=== PATIENT | female | born 1955 | race Two or more races ===

== ENCOUNTER 2016-08-16 18:52 | Emergency (ER) | payer MEDICAID, OTHER ==
[~2016-08-16] VITALS: Ht 157.5 cm; Wt 45.0 kg
[2016-08-16] MEDS ORDERED: morphine 2 MG INJ IV STA (21:03)
[2016-08-16] MEDS ORDERED: ASPIRIN 81 MG TAB PO STA (21:03)
[2016-08-16] MEDS ORDERED: ASPI-664 PO (21:29)
[2016-08-16] MEDS ORDERED: LORA0.5T PO (21:30)
[2016-08-16] MEDS ORDERED: IBUP-1542 PO (21:30)
[2016-08-16] MEDS ORDERED: LISI30TA47 PO (21:31)
[2016-08-16] MEDS ORDERED: OMEP20CA16 PO (21:31)
[2016-08-16 21:35] LABS: ADD SCAN DIFF NO
[2016-08-16 21:37] LABS: BASOPHILS % 0.6 % (0.0-2.0); EOSINOPHILS # 0.1 10^3/ul (0.0-0.5); EOSINOPHILS % 2.7 % (0.0-7.0); HEMATOCRIT 31.9 % (37.0-47.0); LYMPHOCYTES # 1.5 10^3/ul (0.8-2.9); LYMPHOCYTES % 29.6 % (15.0-51.0); MEAN CORPUSCULAR HEMOGLOBIN 26.5 pg (29.0-33.0); MEAN CORPUSCULAR HGB CONC 31.3 g/dl (32.0-37.0); MEAN CORPUSCULAR VOLUME 84.4 fl (82.0-101.0); MEAN PLATELET VOLUME 11.6 fl (7.4-10.4); MONOCYTE # 0.5 10^3/ul (0.3-0.9); MONOCYTES % 10.3 % (0.0-11.0); NEUTROPHIL # 2.9 10^3/ul (1.6-7.5); NEUTROPHILS % 56.6 % (39.0-77.0); PLATELET COUNT 198 10^3/UL (140-415); RED BLOOD COUNT 3.78 10^6/ul (4.20-5.40); RED CELL DISTRIBUTION WIDTH 15.4 % (11.5-14.5); WHITE BLOOD COUNT 5.1 10^3/ul (4.8-10.8)
[2016-08-16 21:47] LABS: CHLORIDE 104 mmol/L (97-110); SODIUM 141 mmol/L (135-144)
[2016-08-16 21:48] LABS: POTASSIUM 3.5 mmol/L (3.5-5.1)
[2016-08-16 21:49] LABS: INR 0.94; PROTIME 12.6 Sec (12.2-14.2)
[2016-08-16 21:50] LABS: ANION GAP 16 (8-16); CARBON DIOXIDE 25 mmol/L (21-31); CREATININE 0.63 mg/dl (0.44-1.00); PARTIAL THROMBOPLASTIN TIME 31.4 Sec (25.0-35.0)
[2016-08-16 21:51] LABS: BLOOD UREA NITROGEN 18 mg/dl (7-20); CALCIUM 8.8 mg/dl (8.4-10.2); GLUCOSE 111 mg/dl (70-220)
[2016-08-16 22:05] LABS: TROPONIN-I < 0.012 ng/ml (0.00-0.12)
--- NOTE | 2016-08-16 22:25 | RADRPT ---
PROCEDURE: XR Chest. CLINICAL INDICATION: Chest pain. TECHNIQUE: Single frontal view of the chest was obtained COMPARISON: None FINDINGS: The heart and mediastinum are within normal limits. The lungs are clear. Likely changes of centrolobular emphysema. There is no pleural effusion or pneumothorax. IMPRESSION: No acute disease. RPTAT: [facility]U Physician Nuris Date Time Electronically viewed and signed by David Mcclellan Physician on 08/16/2016 22:24 RS/
--- NOTE | 2016-08-16 23:16 | ERA ---
ER Documentation Chief Complaint Date/Time DATE: 08/16/16 TIME: 23:11 Chief Complaint Pt with SOB, CP and RAYMUNDO x 3 days, Generalized weakness. HPI 61-year-old female presenting with multiple complaints. She has a history of stroke, anxiety, and hypertension. She has been complaining of chest pain, shortness of breath, and headache for about 3 days. She is unable to describe her pain. She states it comes and goes, nothing makes it worse or better. She has no associated fever, chills, cough, abdominal pain, dysuria. Of note her is currently in the ICU after cardiac arrest. ROS All systems reviewed and are negative except as per history of present illness. Medications Home Meds Reported Medications Omeprazole* (Omeprazole*) 20 Mg Capsule.dr, 20 MG PO BID, #60 CAP 08/16/16 Lisinopril* (Lisinopril*) 30 Mg Tablet, 30 MG PO DAILY, #30 TAB 08/16/16 Ibuprofen* (Ibuprofen*) 600 Mg Tablet, 600 MG PO Q6H Y for PAIN, TAB 08/16/16 Lorazepam* (Lorazepam*) 0.5 Mg Tablet, 0.5 MG PO HS Y for ANXIETY, TAB 08/16/16 Aspirin* (Aspirin* EC) 81 Mg Tablet.dr, 81 MG PO DAILY, TAB 08/16/16 Allergies Allergies: Coded Allergies: hydromorphone (Unverified Allergy, Unknown, 08/16/16) PMhx/Soc History of Surgery: Yes (CWESARIAN DELIVERY X 3) Anesthesia Reaction: No Hx Neurological Disorder: Yes (CVA) Hx Respiratory Disorders: No Hx Cardiac Disorders: Yes (HTN) Hx Psychiatric Problems: No Hx Miscellaneous Medical Probl: No Hx Alcohol Use: No Hx Substance Use: No Hx Tobacco Use: No FmHx Family History: No diabetes Physical Exam Vitals Vital Signs Date Time Temp Pulse Resp B/P Pulse Ox O2 Delivery O2 Flow Rate FiO2 08/16/16 19:24 98.9 74 20 140/64 99 Physical Exam Const: Nontoxic, well-appearing, no apparent distress Head: Atraumatic Eyes: Normal Conjunctiva ENT: Normal External Ears, Nose and Mouth. Neck: Full range of motion. No meningismus. Resp: Clear to auscultation bilaterally Cardio: Regular rate and rhythm, no murmurs Abd: Soft, non tender, non distended. Normal bowel sounds Ext: No cyanosis, or edema Neur: Awake and alert and oriented 3, expressive aphasia Psych: Appears slightly anxious Result Diagram: 08/16/16210508/16/162105 Results 24 hrs Laboratory Tests Test 08/16/16 21:06 Activated Partial Thromboplast Time 31.4Sec Anion Gap 16 Basophils # 0.010^3/ul Basophils % 0.6% Blood Urea Nitrogen 18mg/dl Calcium Level 8.8mg/dl Carbon Dioxide Level 25mmol/L Chloride Level 104mmol/L Creatinine 0.63mg/dl Eosinophils # 0.110^3/ul Eosinophils % 2.7% Glucose Level 111mg/dl Hematocrit 31.9% Hemoglobin 10.0g/dl INR International Normalized Ratio 0.94 Lymphocytes # 1.510^3/ul Lymphocytes % 29.6% Mean Corpuscular Hemoglobin 26.5pg Mean Corpuscular Hemoglobin Concent 31.3g/dl Mean Corpuscular Volume 84.4fl Mean Platelet Volume 11.6fl Monocytes # 0.510^3/ul Monocytes % 10.3% Neutrophils # 2.910^3/ul Neutrophils % 56.6% Nucleated Red Blood Cells # 0.010^3/ul Nucleated Red Blood Cells % 0.0/100WBC Platelet Count 55012^3/UL Potassium Level 3.5mmol/L Prothrombin Time 12.6Sec Prothrombin Time Ratio 1.0 Red Blood Count 3.7810^6/ul Red Cell Distribution Width 15.4% Sodium Level 141mmol/L Troponin I < 0.012ng/ml White Blood Count 5.110^3/ul Current Medications Medications (Trade) Dose Ordered Sig/Marc Route PRN Reason Start Time Stop Time Status Last Admin Dose Admin Aspirin (Aspirin) 162 mg ONCE STAT PO 08/16/16 21:03 08/16/16 21:04 DC 08/16/16 21:22 Morphine Sulfate (morphine) 2 mg ONCE STAT IV 08/16/16 21:03 08/16/16 21:04 DC 08/16/16 21:20 Ondansetron HCl (Zofran Inj) 4 mg ER BRIDGE PRN IV NAUSEA AND/OR VOMITING 08/16/16 23:30 08/17/16 23:29 Acetaminophen (Tylenol Tab) 650 mg ER BRIDGE PRN PO MILD PAIN/FEVER 08/16/16 23:30 08/17/16 23:29 Procedures/MDM EKG: Rate/Rhythm: Normal Sinus Rhythm QRS, ST, T-waves: No changes consistent w/ acute ischemia Impression: No evidence of ischemia or arrhythmia Chest x-ray shows no acute disease per radiology Labs are are only notable for anemia, troponin negative. D-dimer pending. Urinalysis is pending Patient is presenting with multiple complaints. I have a low suspicion that her chest pain and shortness of breath are secondary to acute coronary syndrome as her EKG is normal and her troponin is negative after 24 hours of symptoms. I have a low suspicion for pulmonary embolism or aortic dissection. However given the patient's history of strokes and hypertension, she is at a higher risk for acute coronary syndrome. Aspirin was given. She will require inpatient workup and continuous monitoring. Further w/u for ischemia, arrhythmia, PE or dissection will be deferred to the inpatient team. Accepting Care Team: Current data and ongoing care discussed. Time: Time of admission Primary Provider: Emmanuel Consulting: none Outstanding Data: UA, D-dimer Departure Diagnosis: Primary Impression: Chest pain Qualified Code: R07.89 - Other chest pain Additional Impression: Headache Qualified Code: R51 - Acute nonintractable headache, unspecified headache type Condition: Fair KAMRYN STOUT MD Aug 16, 2016 23:16
[2016-08-16] MEDS ORDERED: ONDANSETRON 4 MG INJ IV PRN (23:30)
[2016-08-16] MEDS ORDERED: ACETAMINOPHEN 325 MG TAB PO PRN (23:30)
--- NOTE | 2016-08-16 23:57 | HP ---
Date/Time of Note Date/Time of Note DATE: 08/16/16 TIME: 23:56 Assessment/Plan VTE Prophylaxis VTE Prophylaxis Intervention: other (Lovenox) Lines/Catheters IV Catheter Type (from Nrs): Saline Lock Assessment/Plan Assessment/Plan 1) Chest Pain - Admit to Telemetry - Serial Troponins - first set NEGATIVE - BMP, Lipid Profile in AM 2) Anemia, Normocytic Hgb = 10. Urine is completely clean although patient complains of dysuria and hematuria. - Stool OB - CBC, Ferritin in AM 3) Elevated D-Dimer = 609.34 (<460) of questionable significance - Repeat in AM - Consider Spiral CT 4) Confusion - TSH, VItamin B12, RPR in AM HPI/ROS Admit Date/Time Admit Date/Time Hx of Present Illness Chief Complaint Pt with SOB, CP and RAYMUNDO x 3 days, Generalized weakness. HPI Per ER Physician: 61-year-old female presenting with multiple complaints. She has a history of stroke, anxiety, and hypertension. She has been complaining of chest pain, shortness of breath, and headache for about 3 days. She is unable to describe her pain. She states it comes and goes, nothing makes it worse or better. She has no associated fever, chills, cough, abdominal pain, dysuria. Of note her is currently in the ICU after cardiac arrest. ER Course: Patient is presenting with multiple complaints. I have a low suspicion that her chest pain and shortness of breath are secondary to acute coronary syndrome as her EKG is normal and her troponin is negative after 24 hours of symptoms. I have a low suspicion for pulmonary embolism or aortic dissection. However given the patient's history of strokes and hypertension, she is at a higher risk for acute coronary syndrome. Aspirin was given. She will require inpatient workup and continuous monitoring. Further w/u for ischemia, arrhythmia, PE or dissection will be deferred to the inpatient team. On my interview, patient complains of daily chest pain that comes and goes. She is a difficult historian, and she gives me a completely positive review of systems so that it is difficult to sort things out. The pain in her chest that she complains about is sharp and strong. Patient complains of sweating, SOB, nausea and back pain, but I cannot clarify whether they are always with but seem to be at least sometimes with the chest pain, and it is definitely unclear whether she has multiple associated symptoms when she does have them. I gave patient a partial Mini Mental Status Exam: She did not know the year or either the city we are in or the city she lives in, but she knew she was in a hospital, that we are in July and her date. She also could identify my watch and pen. ROS POSITIVE ROS: General: Admits: Fever, Chills, Poor Appetite, Generalized Body Aches, Sweating Denies: Eyes: Admits: Blurry Vision, Double Vision Denies: HENT: Admits: Ear Pain/Pressure, Runny/Stuffy Nose, Sore Throat Denies: Cardiovascular: Admits: Chest Pain, Palpitations, Leg Swelling Denies: Pulmonary: Admits: Cough, Shortness of Breath Denies: Gastrointestinal: Admits: Abdominal Pain, Nausea, Vomiting, Diarrhea, Blood in Stool, Black-Colored Stool Denies: Urogenital: Admits: Burning with Urination, Blood in Urine Denies: Musculoskeletal: Admits: Joint Pain, Muscle Pain Denies: Neurological: Admits: Headache, Dizziness Denies: PMH/Family/Social Past Medical History CVA x 3; HTN; GERD Past Surgical History x 3 Social History Alcohol Use: none Smoking Status: Never smoker Drug Use: none Exam/Review of Systems Vital Signs Vitals Vital Signs Date Time Temp Pulse Resp B/P Pulse Ox O2 Delivery O2 Flow Rate FiO2 08/16/16 19:24 98.9 74 20 140/64 99 Exam Exam General: Elderly, Urdu-speaking female, Alert, Cooperative, in No Acute Distress, accompanied by her Cousin (female) Eyes: Sclera White, EOMI HENT: Normocephalic/Atraumatic, External Ears/Nose Normal, Moist Mucus Membranes Neck: Supple, Trachea Midline Cardiovascular: Normal Rate, Normal Rhythm, Normal S1 and S2, No Murmur, No Extra Sounds Pulmonary: Clear to Auscultation Bilaterally, Normal Respiratory Effort, No Rales, Rhonchi or Wheezes Gastrointestinal: Normoactive Bowel Sounds, Soft, General Tenderness, Non- Distended, No Hepatosplenomegaly Appreciated, No Pulsatile Masses Urogenital: Deferred Musculoskeletal: Generally Decreased Muscle Bulk and Normal Tone Neurological: CN II - XII Grossly Intact, Non-Focal, Speech Normal, Moves all 4 Extremities Integumentary: Normal Moisture and Temperature, Good Turgor, No Jaundice, No Rash Lymphatic: No Cervical, Axillare or Inguinal Lymphadenopathy Psychiatric: Appropriate Mood and Affect, Good Eye Contact Labs Result Diagram: 08/16/16210508/16/162105 Medications Medications Home Meds Reported Medications Omeprazole* (Omeprazole*) 20 Mg Capsule.dr, 20 MG PO BID, #60 CAP 08/16/16 Lisinopril* (Lisinopril*) 30 Mg Tablet, 30 MG PO DAILY, #30 TAB 08/16/16 Ibuprofen* (Ibuprofen*) 600 Mg Tablet, 600 MG PO Q6H Y for PAIN, TAB 08/16/16 Lorazepam* (Lorazepam*) 0.5 Mg Tablet, 0.5 MG PO HS Y for ANXIETY, TAB 08/16/16 Aspirin* (Aspirin* EC) 81 Mg Tablet.dr, 81 MG PO DAILY, TAB 08/16/16 Procedures Procedures Laboratory Tests Test 08/16/16 21:06 Activated Partial Thromboplast Time 31.4Sec Anion Gap 16 Basophils # 0.010^3/ul Basophils % 0.6% Blood Urea Nitrogen 18mg/dl Calcium Level 8.8mg/dl Carbon Dioxide Level 25mmol/L Chloride Level 104mmol/L Creatinine 0.63mg/dl Eosinophils # 0.110^3/ul Eosinophils % 2.7% Glucose Level 111mg/dl Hematocrit 31.9% Hemoglobin 10.0g/dl INR International Normalized Ratio 0.94 Lymphocytes # 1.510^3/ul Lymphocytes % 29.6% Mean Corpuscular Hemoglobin 26.5pg Mean Corpuscular Hemoglobin Concent 31.3g/dl Mean Corpuscular Volume 84.4fl Mean Platelet Volume 11.6fl Monocytes # 0.510^3/ul Monocytes % 10.3% Neutrophils # 2.910^3/ul Neutrophils % 56.6% Nucleated Red Blood Cells # 0.010^3/ul Nucleated Red Blood Cells % 0.0/100WBC Platelet Count 77953^3/UL Potassium Level 3.5mmol/L Prothrombin Time 12.6Sec Prothrombin Time Ratio 1.0 Red Blood Count 3.7810^6/ul Red Cell Distribution Width 15.4% Sodium Level 141mmol/L Troponin I < 0.012ng/ml White Blood Count 5.110^3/ul EKG: EKG: Interpreted by ER Physician Rate/Rhythm: Normal Sinus Rhythm QRS, ST, T-waves: No changes consistent w/ acute ischemia Impression: No evidence of ischemia or arrhythmia RADIOLOGY: PROCEDURE: XR Chest. CLINICAL INDICATION: Chest pain. TECHNIQUE: Single frontal view of the chest was obtained FINDINGS: The heart and mediastinum are within normal limits. The lungs are clear. Likely changes of centrolobular emphysema. There is no pleural effusion or pneumothorax. IMPRESSION: No acute disease. LANCE ASCENCIO DO Aug 16, 2016 23:56 Monocytes % 10.3% Neutrophils # 2.910^3/ul Neutrophils % 56.6% Nucleated Red Blood Cells # 0.010^3/ul Nucleated Red Blood Cells % 0.0/100WBC Platelet Count 80809^3/UL Potassium Level 3.5mmol/L Prothrombin Time 12.6Sec Prothrombin Time Ratio 1.0 Red Blood Count 3.7810^6/ul Red Cell Distribution Width 15.4% Sodium Level 141mmol/L Troponin I < 0.012ng/ml White Blood Count 5.110^3/ul EKG: EKG: Interpreted by ER Physician Rate/Rhythm: Normal Sinus Rhythm QRS, ST, T-waves: No changes consistent w/ acute ischemia Impression: No evidence of ischemia or arrhythmia RADIOLOGY: PROCEDURE: XR Chest. CLINICAL INDICATION: Chest pain. TECHNIQUE: Single frontal view of the chest was obtained FINDINGS: The heart and mediastinum are within normal limits. The lungs are clear. Likely changes of centrolobular emphysema. There is no pleural effusion or pneumothorax.
[2016-08-17] VITALS (12 sets, daily range): BP systolic 99–128; BP diastolic 56–74; PULSE 62–74; RESP 15–20; TEMP 98.5; Ht 157.5 cm; Wt 45.0 kg
[2016-08-17 00:09] LABS: D-DIMER 609.34 ng/ml (<460)
[2016-08-17 00:18] LABS: ADD UMIC YES; URINE BILIRUBIN (Dip) NEGATIVE (NEGATIVE); URINE BLOOD (Dip) NEGATIVE (NEGATIVE); URINE COLOR LT. YELLOW (YELLOW); URINE GLUCOSE (Dip) NEGATIVE (NEGATIVE); URINE KETONES (Dip) NEGATIVE (NEGATIVE); URINE LEUKOCYTE ESTERASE (Dip) TRACE (NEGATIVE); URINE NITRITE (Dip) NEGATIVE (NEGATIVE); URINE TOTAL PROTEIN (Dip) NEGATIVE (NEGATIVE); URINE UROBILINOGEN (Dip) 0.2 E.U./dL (0.1-1.0)
[2016-08-17 00:25] LABS: SQUAMOUS EPITHELIAL CELL,UR FEW; URINE RBCS NONE SEEN /HPF (0)
[2016-08-17] MEDS ORDERED: NACL 0.9% 3 ML SYG IV SCH (02:00)
[2016-08-17] MEDS ORDERED: METOCLOPRAMIDE 10 MG INJ IV PRN (02:00)
[2016-08-17] MEDS ORDERED: NITROGLYCERIN (SL) 0.4 MG TAB SL PRN (02:00)
[2016-08-17] MEDS ORDERED: LORAZEPAM 0.5 MG TAB PO PRN (02:00)
[2016-08-17] MEDS ORDERED: FAMOTIDINE 20 MG TAB PO SCH ×2 (02:00)
[2016-08-17] MEDS: FAMOTIDINE 20 MG TAB PO SCH (03:40)
[2016-08-17 03:55] LABS: ADD SCAN DIFF NO
[2016-08-17 03:56] LABS: BASOPHILS % 0.5 % (0.0-2.0); EOSINOPHILS % 4.4 % (0.0-7.0); HEMATOCRIT 30.9 % (37.0-47.0); HEMOGLOBIN 9.9 g/dl (12.0-16.0); LYMPHOCYTES % 41.1 % (15.0-51.0); MEAN CORPUSCULAR VOLUME 84.2 fl (82.0-101.0); MEAN PLATELET VOLUME 10.2 fl (7.4-10.4); MONOCYTES % 11.3 % (0.0-11.0); NEUTROPHIL # 1.7 10^3/ul (1.6-7.5); NEUTROPHILS % 42.4 % (39.0-77.0); PLATELET COUNT 183 10^3/UL (140-415); RED BLOOD COUNT 3.67 10^6/ul (4.20-5.40); RED CELL DISTRIBUTION WIDTH 15.3 % (11.5-14.5); WHITE BLOOD COUNT 3.9 10^3/ul (4.8-10.8)
[2016-08-17 03:57] LABS: EOSINOPHILS # 0.2 10^3/ul (0.0-0.5); LYMPHOCYTES # 1.6 10^3/ul (0.8-2.9); MONOCYTE # 0.4 10^3/ul (0.3-0.9)
[2016-08-17 04:11] LABS: POTASSIUM 3.4 mmol/L (3.5-5.1)
[2016-08-17 04:12] LABS: CREATINE KINASE 155 IU/L (23-200)
[2016-08-17 04:14] LABS: CALCIUM 8.4 mg/dl (8.4-10.2); CREATININE 0.59 mg/dl (0.44-1.00)
[2016-08-17 04:22] LABS: CK-MB 2.05 ng/ml (0.0-2.4)
[2016-08-17 04:26] LABS: TROPONIN-I < 0.012 ng/ml (0.00-0.12)
[2016-08-17 04:50] LABS: THYROID STIMULATING HORMONE 5.03 MIU/L (0.465-4.680)
[2016-08-17] MEDS ORDERED: PANTOPRAZOLE (EC) 40 MG TAB PO SCH (06:00)
[2016-08-17] MEDS: ASPIRIN (EC) 81 MG TAB PO SCH (08:39)
[2016-08-17] MEDS: ENOXAPARIN 40 MG/0.4 ML SYG SC SCH (08:44)
[2016-08-17] MEDS ORDERED: LISINOPRIL 10 MG TAB PO SCH (09:00)
[2016-08-17] MEDS ORDERED: NON-FORMULARY/PATIENT OWN MED (Omeprazole* 20 MG) PO SCH (09:00)
[2016-08-17 09:51] LABS: CREATINE KINASE 142 IU/L (23-200)
[2016-08-17 10:17] LABS: TROPONIN-I < 0.012 ng/ml (0.00-0.12)
[2016-08-17] MEDS: ACETAMINOPHEN 325 MG TAB PO PRN ×2 (11:44→21:54)
--- NOTE | 2016-08-17 14:54 | PN ---
Date/Time of Note Date/Time of Note DATE: 08/17/16 TIME: 14:52 Assessment/Plan VTE Prophylaxis VTE Prophylaxis Intervention: LMWH Lines/Catheters IV Catheter Type (from Nrsg): Saline Lock Assessment/Plan Assessment/Plan 1) Persistent Chest Pain + Dizziness- ACS has been ruled out 2) Chronic anxiety d/o and dementia 3. HTN: controlled 4. Hypochromic anemia 5. Probable UTI 6. Hypokalemia 7. ?Hypothyrodism PLAN: * D dimer elevated / will obtain CT angio * PT eval * resume home meds * replace lytes * urine culture / empiric abx * Repeat labs * supportive care PROPHYLAXIS: pepcid/ lovenox Subjective 24 Hr Interval Summary Free Text/Dictation * still c/o chest pain and dizziness * States pain radiates to her neck and her back * Family however states patient has severe anxiety and dementia Exam/Review of Systems Vital Signs Vitals Vital Signs Date Time Temp Pulse Resp B/P Pulse Ox O2 Delivery O2 Flow Rate FiO2 08/17/16 12:32 97.9 79 20 124/66 96 08/17/16 03:00 Room Air Intake and Output 08/16/16 08/16/16 08/17/16 15:00 23:00 07:00 Intake Total 200 ml Balance 200 ml Exam Constitutional: alert, frail, oriented, No distress Psych: anxiety Head: normocephalic Eyes: PERRL ENMT: mucosa pink and moist Neck: supple Respiratory: clear to auscultation, diminished breath sounds Results Result Diagram: 08/17/16 0345 08/17/16 0345 Results 24 hrs Laboratory Tests Test 08/16/16 21:03 08/16/16 21:06 08/16/16 23:10 08/17/16 03:45 D-Dimer 609.34 H 1163.00 #H D-Dimer Comment Activated Partial Thromboplast Time 31.4 Anion Gap 16 12 Basophils # 0.0 0.0 Basophils % 0.6 0.5 Blood Urea Nitrogen 18 15 Calcium Level 8.8 8.4 Carbon Dioxide Level 25 28 Chloride Level 104 107 Creatinine 0.63 0.59 Eosinophils # 0.1 0.2 Eosinophils % 2.7 4.4 Glucose Level 111 84 Hematocrit 31.9 L 30.9 L Hemoglobin 10.0 L 9.9 L INR International Normalized Ratio 0.94 Lymphocytes # 1.5 1.6 Lymphocytes % 29.6 41.1 Mean Corpuscular Hemoglobin 26.5 L 27.0 L Mean Corpuscular Hemoglobin Concent 31.3 L 32.0 Mean Corpuscular Volume 84.4 84.2 Mean Platelet Volume 11.6 H 10.2 Monocytes # 0.5 0.4 Monocytes % 10.3 11.3 H Neutrophils # 2.9 1.7 Neutrophils % 56.6 42.4 Nucleated Red Blood Cells # 0.0 0.0 Nucleated Red Blood Cells % 0.0 0.0 Platelet Count 198 183 Potassium Level 3.5 3.4 L Prothrombin Time 12.6 Prothrombin Time Ratio 1.0 Red Blood Count 3.78 L 3.67 L Red Cell Distribution Width 15.4 H 15.3 H Sodium Level 141 144 Troponin I < 0.012 < 0.012 White Blood Count 5.1 3.9 #L Urine Bilirubin NEGATIVE Urine Clarity CLEAR Urine Color LT. YELLOW Urine Glucose NEGATIVE Urine Hemoglobin NEGATIVE Urine Ketones NEGATIVE Urine Leukocyte Esterase TRACE H Urine Microscopic RBC NONE SEEN Urine Microscopic WBC 2-5 Urine Nitrite NEGATIVE Urine Specific [place] 1.010 Urine Squamous Epithelial Cells FEW Urine Total Protein NEGATIVE Urine Urobilinogen 0.2 E.U./dL Urine pH 5.5 Cholesterol Level 179 Cholesterol/HDL Ratio 2.0 Creatine Kinase 155 Creatine Kinase Index 1.3 Creatinine Kinase MB (Mass) 2.05 Ferritin 6.0 L HDL Cholesterol 86 LDL Cholesterol, Calculated 85 Thyroid Stimulating Hormone (TSH) 5.030 H Triglycerides Level 39 Vitamin B12 Level 489 Test 08/17/16 09:31 Creatine Kinase 142 Creatine Kinase Index 1.3 Creatinine Kinase MB (Mass) 1.90 Troponin I < 0.012 Medications Medications Current Medications Metoclopramide HCl (Reglan) 10 mg Q6H PRN IV NAUSEA AND/OR VOMITING; Start at 02:00 Nitroglycerin (Nitroglycerin (Sl Tab) 0.4 Mg) 1 tab Q5M PRN SL CHEST PAIN; Start 08/17/16 at 02:00 Acetaminophen (Tylenol Tab) 650 mg Q6H PRN PO PAIN LEVEL 1-3 OR FEVER Last administered on 08/17/16t 11:44; Admin Dose 650 MG; Start 08/17/16 at 02:00 Enoxaparin Sodium (Lovenox) 40 mg DAILY SC Last administered on 08/17/16 08:44 ; Admin Dose 40 MG; Start 08/17/16 at 09:00 Aspirin (Halfprin) 81 mg DAILY PO Last administered on 08/17/16 08:39; Admin Dose 81 MG; Start 08/17/16 at 09:00 Lisinopril (Zestril) 30 mg DAILY PO ; Start 08/17/16 at 09:00 Famotidine (Pepcid) 20 mg DAILY@0230 PO Last administered on 08/17/16 03:40; Admin Dose 20 MG; Start 08/17/16 at 02:30 Pantoprazole (Protonix Tab) 40 mg BID@06,18 PO Last administered on 08/17/16 05:39; Admin Dose 40 MG; Start 08/17/16 at 06:00 Influenza Virus Vaccine (Fluzone) 0.5 ml ONCE ONCE IM* ; Start 08/18/16 at 09:00 ; Stop 08/18/16 at 09:01 Lorazepam (Ativan) 0.5 mg BID PRN PO ANXIETY; Start 08/17/16 at 21:00 ANNE-MARIE GRIFFITHS Aug 17, 2016 14:54
[2016-08-17 15:22] LABS: IRON 70 ug/dl (35-150)
[2016-08-17 15:30] LABS: TOTAL IRON BINDING CAPACITY 352 ug/dl (241-421)
[2016-08-17] MEDS ORDERED: LEVOFLOXACIN 500MG/D5W (PMX) 100 ML IVPB SCH (15:30)
[2016-08-17] MEDS ORDERED: POTASSIUM CHLORIDE 250 ML IVPB ONE (16:30)
--- NOTE | 2016-08-17 17:06 | CONS ---
Date/Time of Note Date/Time of Note DATE: 08/17/16 TIME: 17:00 Assessment/Plan Assessment/Plan Additional Assessment/Plan Chest pain History of hypertension Possible history of CVA Anemia -Patient presents with multiple complaints including abdominal pain, headache, dysuria. Her chest pain is worse with palpation of her abdomen. Serial cardiac enzymes have remained negative, ECG without any significant ischemic abnormalities. Her symptoms do not appear cardiac in origin based on her history and current examination. Would concurrently evaluate other noncardiac causes for his symptoms. Blood pressure has been on the lower end, I would decrease her dose of lisinopril. Continue aspirin if no contraindication. Consultation Date/Type/Reason Admit Date/Time Type of Consultation: cv Reason for Consultation Chest pain Hx of Present Illness This is a 61-year-old female who presents with multiple complaints including headache, chest pain, abdominal pain, difficulty with urination and dysuria. She usually has chest discomfort which begins in her abdomen and goes up to her chest. Pain is worse with pushing on her abdomen. Pain is worse with deep inspiration. She has a pain almost on a daily basis going on for many months. Patient came to the emergency room because symptoms have worsened. She denies any shortness of breath at the time of pain with deep inspiration worsens the pain. Also varying down to use the back worsens her pain. She currently is feeling better and has minimal chest pain. Currently she is pointing to her abdomen where most of her pain is. 12 point review of systems was performed with all pertinent positives and negatives mentioned above and all else is negative Psychological: anxiety Past Medical History Possible history of CVA Medical History: hypertension Family History Significant Family History: no pertinent family hx Social History Alcohol Use: none Smoking Status: Never smoker Drug Use: none Exam/Review of Systems Vital Signs Vitals Vital Signs Date Time Temp Pulse Resp B/P Pulse Ox O2 Delivery O2 Flow Rate FiO2 08/17/16 16:50 98.1 74 18 128/74 96 08/17/16 03:00 Room Air Intake and Output 08/16/16 08/16/16 08/17/16 15:00 23:00 07:00 Intake Total 200 ml Balance 200 ml Exam No apparent distress Constitutional: alert, oriented Head: normocephalic Neck: supple Respiratory: clear to auscultation, normal air movement Cardiovascular: other (S1-S2 heard), regular rate and rhythm Gastrointestinal: bowel sounds, other (Diffuse tenderness with palpation, no guarding or rebound), soft Extremities: other (No edema or cyanosis) Results Result Diagram: 08/17/16 0345 08/17/16 0345 Results 24 hrs Laboratory Tests Test 08/16/16 21:03 08/16/16 21:06 08/16/16 23:10 08/17/16 03:45 D-Dimer 609.34 H 1163.00 #H D-Dimer Comment Activated Partial Thromboplast Time 31.4 Anion Gap 16 12 Basophils # 0.0 0.0 Basophils % 0.6 0.5 Blood Urea Nitrogen 18 15 Calcium Level 8.8 8.4 Carbon Dioxide Level 25 28 Chloride Level 104 107 Creatinine 0.63 0.59 Eosinophils # 0.1 0.2 Eosinophils % 2.7 4.4 Glucose Level 111 84 Hematocrit 31.9 L 30.9 L Hemoglobin 10.0 L 9.9 L INR International Normalized Ratio 0.94 Lymphocytes # 1.5 1.6 Lymphocytes % 29.6 41.1 Mean Corpuscular Hemoglobin 26.5 L 27.0 L Mean Corpuscular Hemoglobin Concent 31.3 L 32.0 Mean Corpuscular Volume 84.4 84.2 Mean Platelet Volume 11.6 H 10.2 Monocytes # 0.5 0.4 Monocytes % 10.3 11.3 H Neutrophils # 2.9 1.7 Neutrophils % 56.6 42.4 Nucleated Red Blood Cells # 0.0 0.0 Nucleated Red Blood Cells % 0.0 0.0 Platelet Count 198 183 Potassium Level 3.5 3.4 L Prothrombin Time 12.6 Prothrombin Time Ratio 1.0 Red Blood Count 3.78 L 3.67 L Red Cell Distribution Width 15.4 H 15.3 H Sodium Level 141 144 Troponin I < 0.012 < 0.012 White Blood Count 5.1 3.9 #L Urine Bilirubin NEGATIVE Urine Clarity CLEAR Urine Color LT. YELLOW Urine Glucose NEGATIVE Urine Hemoglobin NEGATIVE Urine Ketones NEGATIVE Urine Leukocyte Esterase TRACE H Urine Microscopic RBC NONE SEEN Urine Microscopic WBC 2-5 Urine Nitrite NEGATIVE Urine Specific [place] 1.010 Urine Squamous Epithelial Cells FEW Urine Total Protein NEGATIVE Urine Urobilinogen 0.2 E.U./dL Urine pH 5.5 Cholesterol Level 179 Cholesterol/HDL Ratio 2.0 Creatine Kinase 155 Creatine Kinase Index 1.3 Creatinine Kinase MB (Mass) 2.05 Ferritin 6.0 L HDL Cholesterol 86 Iron Level 70 LDL Cholesterol, Calculated 85 Percent Iron Saturation 20 L Thyroid Stimulating Hormone (TSH) 5.030 H Total Iron Binding Capacity 352 Triglycerides Level 39 Vitamin B12 Level 489 Test 08/17/16 09:31 Creatine Kinase 142 Creatine Kinase Index 1.3 Creatinine Kinase MB (Mass) 1.90 Troponin I < 0.012 Medications Medications Current Medications Metoclopramide HCl (Reglan) 10 mg Q6H PRN IV NAUSEA AND/OR VOMITING; Start at 02:00 Nitroglycerin (Nitroglycerin (Sl Tab) 0.4 Mg) 1 tab Q5M PRN SL CHEST PAIN; Start 08/17/16 at 02:00 Acetaminophen (Tylenol Tab) 650 mg Q6H PRN PO PAIN LEVEL 1-3 OR FEVER Last administered on 08/17/16 11:44; Admin Dose 650 MG; Start 08/17/16 at 02:00 Enoxaparin Sodium (Lovenox) 40 mg DAILY SC Last administered on 08/17/16 08:44 ; Admin Dose 40 MG; Start 08/17/16 at 09:00 Aspirin (Halfprin) 81 mg DAILY PO Last administered on 08/17/16 08:39; Admin Dose 81 MG; Start 08/17/16 at 09:00 Lisinopril (Zestril) 30 mg DAILY PO ; Start 08/17/16 at 09:00 Famotidine (Pepcid) 20 mg DAILY@0230 PO Last administered on 08/17/16 03:40; Admin Dose 20 MG; Start 08/17/16 at 02:30 Influenza Virus Vaccine (Fluzone) 0.5 ml ONCE ONCE IM* ; Start 08/18/16 at 09:00 ; Stop 08/18/16 at 09:01 Lorazepam 0.5 mg 0.5 mg BID PRN PO ANXIETY; Start 08/17/16 at 21:00 Levofloxacin/ Dextrose (Levaquin 500mg/ D5W 100 ml (Pmx)) 100 ml @ 100 mls/hr ONCE IVPB Last administered on 08/17/16 16:02; Admin Dose 100 MLS/HR; Start at 15:30; Stop 08/17/16 at 17:00 Pantoprazole 40 mg 40 mg DAILY PO ; Start 08/18/16 at 09:00 Potassium Chloride 250 ml @ 62.5 mls/hr ONCE ONCE IVPB ; Start 08/17/16 at 16: 30; Stop 08/17/16 at 20:29 Levofloxacin/ Dextrose (Levaquin 250 Mg/ D5W 50 ml (Pmx)) 50 ml @ 50 mls/hr Q24H IVPB ; Start 08/18/16 at 15:30 Procedures Procedures ECG demonstrates sinus rhythm at 69 bpm, QRS 86 ms, no significant ischemic STT wave abnormalities Amadou Morgan DO Aug 17, 2016 17:06
[2016-08-17] MEDS ORDERED: SOD CHLORIDE 0.9% 100 ML ONE (20:31)
[2016-08-17] MEDS ORDERED: IOHEXOL 300MG/ML 150 ML BTL ONE (20:31)
[2016-08-17] MEDS: LORAZEPAM 0.5 MG TAB PO PRN (21:54)
[2016-08-18] VITALS (11 sets, daily range): BP systolic 106–153; BP diastolic 57–74; PULSE 67–102; RESP 15–20
--- NOTE | 2016-08-18 01:30 | RADRPT ---
PROCEDURE: CT Chest with contrast. CLINICAL INDICATION: Chest pain. TECHNIQUE: CT scan of the chest with contrast was performed on a multidetector high-resolution CT scanner. The patient was scanned following the uncomplicated intravenous administration of 100 cc o f Omnipaque-300 contrast. Coronal and sagittal reformatted images were obtained from the axial sour ce images. Images were reviewed on a high-resolution PACS workstation. The total exam CTDI equals 3. 43 mGy and the total exam DLP equals 131.41 mGy-cm. COMPARISON: Plain film chest dated 08/16/2016 FINDINGS: Mild hyperinflation suggests a degree of COPD and likely changes of centrolobular emphysema. Lungs a re otherwise clear. No focal opacification, effusion, pneumothorax, edema, or nodules are seen. Th ere is no pulmonary infiltrate. No mass lesion to suggest neoplasm is identified. The central trac heobronchial tree is clear. The mediastinum is unremarkable without evidence for mass or lymphadenopathy. The vascular structur es of the mediastinum are normal in course and caliber. The heart size is mildly enlarged, without evidence for pericardial thickening or effusion. The axillary regions, subpectoral regions, and supraclavicular regions are all unremarkable. The valente rounding chest wall is unremarkable. Imaging obtained through the upper abdomen reveals no acute abn ormality. The surrounding osseous structures are remarkable for degenerative spondylosis of the spi ne. No osteolytic or osteoblastic lesion is detected. IMPRESSION: 1. Mildly enlarged heart, otherwise nonspecific. 2. Mild hyperinflation suggests a degree of COPD and likely changes of centrolobular emphysema. 3. Otherwise, no acute process in the chest. RPTAT: [facility] Physician Nuris Date Time Electronically viewed and signed by Physician Nuris on 08/18/2016 01:29 RS/
[2016-08-18] MEDS: FAMOTIDINE 20 MG TAB PO SCH (02:30)
[2016-08-18 08:29] LABS: ADD SCAN DIFF NO
[2016-08-18 08:33] LABS: EOSINOPHILS # 0.1 10^3/ul (0.0-0.5); EOSINOPHILS % 3.9 % (0.0-7.0); HEMATOCRIT 36.6 % (37.0-47.0); HEMOGLOBIN 11.2 g/dl (12.0-16.0); LYMPHOCYTES % 31.7 % (15.0-51.0); MEAN CORPUSCULAR HEMOGLOBIN 26.4 pg (29.0-33.0); MEAN CORPUSCULAR HGB CONC 30.6 g/dl (32.0-37.0); MEAN CORPUSCULAR VOLUME 86.3 fl (82.0-101.0); MEAN PLATELET VOLUME 11.6 fl (7.4-10.4); MONOCYTE # 0.3 10^3/ul (0.3-0.9); MONOCYTES % 10.5 % (0.0-11.0); NEUTROPHIL # 1.6 10^3/ul (1.6-7.5); NEUTROPHILS % 52.9 % (39.0-77.0); PLATELET COUNT 216 10^3/UL (140-415); RED BLOOD COUNT 4.24 10^6/ul (4.20-5.40); RED CELL DISTRIBUTION WIDTH 15.5 % (11.5-14.5); WHITE BLOOD COUNT 3.1 10^3/ul (4.8-10.8)
[2016-08-18 08:42] LABS: POTASSIUM 3.8 mmol/L (3.5-5.1)
[2016-08-18 08:45] LABS: CREATININE 0.71 mg/dl (0.44-1.00)
[2016-08-18] MEDS: ASPIRIN (EC) 81 MG TAB PO SCH (08:45)
[2016-08-18 08:46] LABS: CALCIUM 8.9 mg/dl (8.4-10.2)
[2016-08-18] MEDS: ENOXAPARIN 40 MG/0.4 ML SYG SC SCH (08:48)
[2016-08-18] MEDS ORDERED: LISINOPRIL 10 MG TAB PO SCH (09:00)
[2016-08-18] MEDS ORDERED: PANTOPRAZOLE (EC) 40 MG TAB PO SCH (09:00)
[2016-08-18] MEDS ORDERED: INFLUENZA VIRUS VACCINE 0.5 ML (DISPENSING) IM* ONE (09:00)
[2016-08-18 09:13] LABS: T3 UPTAKE 33.7 % (23.5-40.5)
[2016-08-18 09:27] LABS: THYROID STIMULATING HORMONE 2.45 MIU/L (0.465-4.680)
[2016-08-18] MEDS ORDERED: IPRA4AER INHALATION (12:16)
[2016-08-18] MEDS ORDERED: LEVO500T10 PO (12:16)
[2016-08-18] MEDS ORDERED: ADV25050 INHALATION (12:16)
[2016-08-18] MEDS ORDERED: GUAI-637 PO (12:16)
--- NOTE | 2016-08-18 12:17 | PDOCDIS ---
Discharge Instructions DIAGNOSIS Discharge Diagnosis: COPD CONDITION Patient Condition: Stable HOME CARE INSTRUCTIONS: Diet Instructions: Low Fat /Cholesterol ACTIVITY: Activity Restrictions: Slowly Increase Activity Rest between Activity FOLLOW UP/APPOINTMENTS Appointments Followup with your primary doctor within the next 1-2 weeks. If you don't have one please let someone know, we can give you resources that may help you pick one. You may also call your insurance company to assign one to you. Review your medication list with your nurse before leaving and if you need new prescriptions please let your nurse know. I may have made changes to your home medications or given you new prescriptions , please let your primary doctor know as well. Stay compliant with your medications and report any side effects to your PCP or pharmacist. Return to the ER if you have any concerns and cannot reach your doctors or call your insurance company, they usually have a nurse that can help you. ANNE-MARIE GRIFFITHS Aug 18, 2016 12:17
[2016-08-18] MEDS ORDERED: LISI30TA47 PO (12:44)
[2016-08-18] MEDS ORDERED: ASPI-664 PO (12:44)
[2016-08-18] MEDS ORDERED: HYD25 PO (13:02)
[2016-08-18] MEDS ORDERED: LEVOFLOXACIN 250MG/D5W (PMX) 50 ML IVPB SCH (15:30)
--- NOTE | 2016-08-18 17:26 | RADRPT ---
Echocardiogram Report Patient Name: KAMINI RIVERA Gender: Female Date: 1955 Study Date: 18-Aug-2016 [employer] Agent: Zack Moody [facility] Location: 5559 Ref. Physician: ANNE-MARIE GRIFFITHS Quality: Good Procedures: Transthoracic echocardiogram with complete 2D, M-Mode, and doppler examination. Indications: Chest Pain. 2D/M Mode Doppler Measurement Value Normal Ranges Measurement Value Normal Ranges LVIDd 2D 4.7 3.5 - 5.6 cm AV Peak Jackson 1.1 m/sec LVIDs 2D 1.6 2.1 - 4.1 cm AV Peak PG 5.1 mmHg LVPWd 2D 0.8 0.6 - 1.1 cm AI Peak PG 71.2 mmHg IVSd 2D 0.7 0.6 - 1.1 cm AI Peak Jackson 4.2 m/sec AoR Diam 2D 2.6 2.0 - 3.7 cm AI PHT 1070.5 msec EDV 2D 102.8 cm3 LVOT Peak Jackson 1.0 m/sec ESV 2D 3.9 cm3 LVOT Peak PG 4.2 mmHg LA Dimen 2D 3.0 2.3 - 4.0 cm MV E Peak Jackson 0.5 m/sec MV A Peak Jackson 0.8 m/sec MV E/A 0.7 MV Decel Time 136 msec MV Decel [place] 4 MV E/A 0.7 TR Peak Jackson 2.5 m/sec TR Peak PG 25.4 mmHg RVSP 28.0 mmHg Findings Left Ventricle: Normal left ventricular systolic function. Normal left ventricular cavity size. Normal left ventricular wall thickness. Ejection fraction is visually estimated at 60 %. Tissue Doppler/Mitral Doppler indices are consistent with impaired relaxation (Stage I diastolic dysfunction). Right Ventricle: Normal right ventricular size. Normal right ventricular systolic function. Left Atrium: The left atrium is normal in size. Right Atrium: The right atrium is normal in size. Mitral Valve: Normal appearance and function of the mitral valve with trace physiologic regurgitation. Aortic Valve: Normal appearance of the aortic valve. Trace aortic valve regurgitation. Tricuspid Valve: Normal appearance of the tricuspid valve. Estimated peak PA systolic pressure 28 mmHg. There is mild tricuspid regurgitation. Pulmonic Valve: Normal pulmonic valve appearance. Pericardium: Normal pericardium with no significant pericardial effusion. Aorta: Normal aortic root. IVC: Normal size and normal respiratory collapse consistent with normal right atrial pressure. Conclusions 1.Normal left ventricular systolic function. Normal left ventricular cavity size. Normal left ventricular wall thickness. Ejection fraction is visually estimated at 60 %. Tissue Doppler/Mitral Doppler indices are consistent with impaired relaxation (Stage I diastolic dysfunction). 2.Normal right ventricular size. Normal right ventricular systolic function. 3.The left atrium is normal in size. 4.The right atrium is normal in size. 5.Estimated peak PA systolic pressure 28 mmHg. There is mild tricuspid regurgitation. 6.No significant valvular stenosis or regurgitation seen of remaining visualized valves. 7.Normal pericardium with no significant pericardial effusion. Electronically Signed By: Amadou Morgan 18-Aug-2016 17:26:04 -0700 Patient Name: KAMINI RIVERA Study Date: 18-Aug-2016 [id number]
[2016-08-18] MEDS: LORAZEPAM 0.5 MG TAB PO PRN (20:00)
--- NOTE | 2016-08-19 02:05 | DS ---
DATE OF ADMISSION: 08/16/2016 DATE OF DISCHARGE: 08/18/2016 PRESENTING COMPLAINT: Shortness of breath, chest pain and headaches. ADMISSION DIAGNOSES: 1. Chest pain, rule out acute coronary syndrome. 2. Anemia, normocytic. 3. Elevated D-dimer. 4. Confusion. 5. Ingrown toenails. CONSULTS ON THE CASE: Dr. Amadou Morgan for cardiology. INTERVENTION: 2D echocardiogram showed EF of 60%, stage I diastolic dysfunction, estimated peak PA systolic pressure of 28. No significant valvular stenosis or regurgitation. The patient underwent a chest x-ray 08/23/2016 that showed no acute disease and a CT scan of the chest 08/18/2016 that cory wed nonspecific, mild hyperinflation suggesting a degree of chronic obstructive pulmonary dise ase and changes of centrolobular emphysema. Note that the patient was also seen by Podiatry for an ingrown toenail. DISCHARGE CONDITION: Stable. ACTIVITIES: As tolerated. HOSPITAL COURSE: Full details are available in the chart for review. In summary, this 61-year-old female does have a history of anxiety, who was brought in by her daughter because of chest pain that radiated to her back and her neck. She was admitted for rule out, ruled out with 3 sets of cardiac enzymes. Got an echocardiogram and because of elevated D-dimer, got a CT angio that was negative. TSH was screened and basically was normal and as of the time of discharge, the patient was reportin g improvement in her symptoms chest pain. She also pointed out an inflamed right toe secondar y to an ingrown toenail and podiatry was consulted to see her. He has cleared her for discharge and outpatient followup with him; it was Dr. Mercer. FINAL DISCHARGE MEDICATIONS: 1. Combivent inhalation every 4 hours p.r.n. 2. Robitussin 100 p.o. q.6 p.r.n. 3. Hydrochlorothiazide 25 daily. 4. Levaquin 500 daily. 5. Advair 1 inhalation b.i.d. 6. Aspirin 81 mg daily. 7. Ibuprofen as needed. 8. Lorazepam 0.5 at bedtime p.r.n. 9. Omeprazole 20 p.o. b.i.d. 10. Her lisinopril was stopped. Time spent on discharge coordination and planning was about 50 minutes. Dictated By: ANNE-MARIE GRIFFITHS MD BA/NTS Conf#: [id number] DID#: [id number]
--- NOTE | 2016-08-20 10:02 | CONS ---
DATE OF ADMISSION: 08/16/2016 DATE OF CONSULTATION: 08/18/2016 REFERRING PHYSICIAN: Dr. Power Caceres. REASON FOR CONSULTATION: Left foot infection. HISTORY OF PRESENT ILLNESS: The patient was admitted for chart pain and dizziness, was noted to have infection of left great toe and was asked to evaluate. The patient with mild pain with palpation . Denies nausea and vomiting. The patient has a history of hypertension,hypothyroidism, history of CVA x3, GERD, SOCIAL HISTORY: Denies any alcohol, smoking or drug use. PHYSICAL EXAMINATION: VITAL SIGNS: Temperature is 97.8, pulse is 92, respiratory rate 20, blood pressure is 132/72, GENERAL: The patient is alert and oriented, in no acute distress. HEENT: Head is normocephalic and atraumatic. Trachea is midline. LUNGS: Regular respirations. EXTREMITIES: The patient has 2+ DP pulse. Left foot has erythema to the left medial aspect of the great toe. Pain with palpation. There is mild serous drainage. Erythema is minimal. There is an ingrown nail. No lymphangitis. The patient has intact sensation. Normal range of motion of ankle. LABORATORY: hematocrit 33.6, platelets 216. ASSESSMENT: 1. Left great toe pain. 2. Cellulitis. 3. Ingrown nail left great toe. 4. Anemia. PLAN: The patient was seen and evaluated. Discussed clinical appearance. Would benefit from partial nail avulsion of left great toe. The patient at this time is refusing. She states she needs further discussion with her family members. The patient is pending discharge. Would recommend daily cleansing, topical ointment and if persists or worsens, to followup as an outpatient. I appreciate the consultation. Dictated By: CHRISTIANNE FULTON/OSIEL Conf#: [id number] DID#: [id number] MTDD
== END 2016-08-18 21:15 | disposition home or self-care (01) ==
LOC: E/R 18:52 → MS4 23:22
PROVIDERS: ADMIT Family Medicine; ATTEND Family Medicine
DX: R07.9 Chest pain, unspecified (principal); R06.02 Shortness of breath; R79.1 Abnormal coagulation profile; R41.0 Disorientation, unspecified; D50.9 Iron deficiency anemia, unspecified; I10 Essential (primary) hypertension; E87.6 Hypokalemia; F41.9 Anxiety disorder, unspecified; F03.90 Unspecified dementia, unspecified severity, without behavioral disturbance, psychotic disturbance, mood disturbance, and anxiety; L60.0 Ingrowing nail; Z86.73 Personal history of transient ischemic attack (TIA), and cerebral infarction without residual deficits
CPT/HCPCS: 36415; 71010; 71260; 80048; 80061; 81001; 82550; 82553; 82607; 82728; 83540; 83735; 84436; 84443; 84479; 84484; 85025; 85378; 85610; 85730; 86592; 87086; 90686; 93005; 93306; 96365; 96374; 96375; J1650; J1956; J2270; J3480; Q9967; Z7500; Z7502; Z7610; 81003; G0378

== ENCOUNTER 2016-09-24 03:05 | Emergency (ER) | payer OTHER ==
[~2016-09-24] VITALS: Ht 157.5 cm; Wt 50.0 kg
[~2016-09-24 03:05] MED LIST: ADV25050 INHALATION; ASPI-664 PO; GUAI-637 PO; HYD25 PO; IBUP-1542 PO; IPRA4AER INHALATION; LEVO500T10 PO; LORA0.5T PO; OMEP20CA16 PO
[2016-09-24 03:11] VITALS: Ht 157.5 cm; Wt 50.0 kg
--- NOTE | 2016-09-24 07:24 | RADRPT ---
PROCEDURE: XR left thumb CLINICAL INDICATION: Duodenal pain TECHNIQUE: 2 views were obtained. COMPARISON: No prior studies are available for comparison. FINDINGS: Soft tissue edema of the first toe is seen. No definite foreign body or soft tissue gas is seen. N o definite fracture or dislocation. No marked degenerative change. The sesamoids are unremarkable in appearance.. IMPRESSION: No definite acute bony abnormality.. Soft tissue edema without definite soft tissue gas or ulcerati on. RPTAT: [facility] Physician Giovani Date Time Electronically viewed and signed by Jessica Tatum Physician on 09/24/2016 07:23 LE/
[2016-09-24] MEDS ORDERED: TRAM-40 PO (07:38)
[2016-09-24] MEDS ORDERED: CEPH-443 PO (07:38)
[2016-09-24] MEDS ORDERED: SULF1TAB31 PO (07:38)
--- NOTE | 2016-09-24 07:42 | ERD ---
ER Documentation Chief Complaint Date/Time DATE: 09/24/16 TIME: 07:39 Chief Complaint Left great toe pain HPI This is a 61-year-old female who is here for complaints of redness and pain to her left great toe for 1-1/2 months. She is not here for chest pain. She has had some erythema to the left great toe distally she is applying some type of home remedy paste to her toe. Pain is described as a constant dull pain. No trauma. No numbness or weakness in the leg. No fever. ROS All systems reviewed and are negative except as per history of present illness. Medications Home Meds Active Scripts Tramadol Hcl* (Ultram*) 50 Mg Tablet, 100 MG PO Q8, #14 TAB Prov:KHRIS THORNTON DO 09/24/16 Sulfamethoxazole/Trimethoprim* (Bactrim Ds* Tablet) 1 Each Tablet, 1 TAB PO BID for 10 Days, TAB Prov:KHRIS THORNTON DO 09/24/16 Cephalexin* (Keflex*) 500 Mg Capsule, 500 MG PO Q8, #21 CAP Prov:KHRIS THORNTON DO 09/24/16 Hydrochlorothiazide* (Hydrochlorothiazide*) 25 Mg Tab, 25 MG PO DAILY, #30 TAB Prov:ANNE-MARIE GRIFFITHS 08/18/16 Aspirin* (Aspirin* EC) 81 Mg Tablet.dr, 81 MG PO DAILY for 30 Days, TAB 2 Refills Prov:ANNE-MARIE GRIFFITHS 08/18/16 Levofloxacin* (Levofloxacin*) 500 Mg Tablet, 500 MG PO DAILY for 7 Days, TAB Prov:ANNE-MARIE GRIFFITHS 08/18/16 Albuterol/Ipratropium* (Combivent Respimat*) 20-100 Mcg/Inh - 4 Gm Aer.w.adap, 1 PUFF INHALATION Q6H, #1 INHALER Prov:ANNE-MARIE GRIFFITHS 08/18/16 Salmeterol Xinaf/Fluticasone* (Advair*) 250-50 Diskus Inhaler, 1 INH INHALATION BID Y for SHORTNESS OF BREATH, #1 INHALER Prov:ANNE-MARIE GRIFFITHS 08/18/16 Guaifenesin* (Robitussin*) 100 Mg/5 Ml Syrup, 100 MG PO Q6H Y for COUGH, #30 ML take every 6h scheduled for the next 2 days, then PRN cough Prov:ANNE-MARIE GRIFFITHS 08/18/16 Reported Medications Omeprazole* (Omeprazole*) 20 Mg Capsule.dr, 20 MG PO BID, #60 CAP 08/16/16 Ibuprofen* (Ibuprofen*) 600 Mg Tablet, 600 MG PO Q6H Y for PAIN, TAB 08/16/16 Lorazepam* (Lorazepam*) 0.5 Mg Tablet, 0.5 MG PO HS Y for ANXIETY, TAB 08/16/16 Allergies Allergies: Coded Allergies: hydromorphone (Unverified Allergy, Unknown, 08/16/16) PMhx/Soc History of Surgery: No Anesthesia Reaction: No Hx Neurological Disorder: No Hx Respiratory Disorders: No Hx Cardiac Disorders: No (HTN, high cholesterol, stroke) Hx Psychiatric Problems: No Hx Miscellaneous Medical Probl: Yes (Dementia ) Hx Alcohol Use: No Hx Substance Use: No Hx Tobacco Use: No Smoking Status: Never smoker FmHx Family History: No coronary disease Physical Exam Vitals Vital Signs Date Time Temp Pulse Resp B/P Pulse Ox O2 Delivery O2 Flow Rate FiO2 09/24/16 03:11 97.8 68 20 137/63 99 Physical Exam Const: Well-developed, well-nourished Head: Atraumatic, normocephalic Eyes: Normal Conjunctiva, PERRLA, EOMI, normal sclera, no nystagmus ENT: Normal External Ears, Nose and Mouth, moist mucus membranes. Neck: Full range of motion. No meningismus, no lymphadenopathy. Resp: Clear to auscultation bilaterally, no wheezing, rhonchi, rales Cardio: Regular rate and rhythm, no murmurs, S1 S2 present Abd: Soft, non tender x 4, non distended. Normal bowel sounds, no guarding or rebound, no pulsitile abdominal masses or bruits Skin: No petechiae or rashes, no ecchymosis , no maculopapular rash Back: No midline or flank tenderness Ext: No cyanosis, or edema, FROM x 4, normal inspection, neurovascularly intact x 4, bilateral dorsalis pedis pulses are bounding. Left foot is warm, the left great toe has erythema starting at the proximal toe spreading distally. There is no swelling. Cap refill is less than 2 toenail is intact no paronychia Neur: Awake and alert, STR 5/5 x 4, sensation intact x 4, no focal findings, cerebellum intact Psych: Normal Mood and Affect Results 24 hrs Laboratory Tests Test 09/24/16 07:12 Bedside Glucose 87mg/dL Procedures/MDM PROCEDURE: XR left thumb CLINICAL INDICATION: Duodenal pain TECHNIQUE: 2 views were obtained. COMPARISON: No prior studies are available for comparison. FINDINGS: Soft tissue edema of the first toe is seen. No definite foreign body or soft tissue gas is seen. No definite fracture or dislocation. No marked degenerative change. The sesamoids are unremarkable in appearance.. IMPRESSION: No definite acute bony abnormality.. Soft tissue edema without definite soft tissue gas or ulceration. RPTAT: [facility] Physician Giovani Date Time Electronically viewed and signed by Jessica Tatum Physician on 09/24/2016 07 :23 LE/ CC: KHRIS THORNTON No signs of osteomyelitis will treat for cellulitis No signs of peripheral vascular disease Departure Diagnosis: Primary Impression: Cellulitis of toe of left foot Condition: Stable Patient Instructions: Cellulitis KHRIS THORNTON DO Sep 24, 2016 07:41
[2016-09-24] MEDS ORDERED: ALPR0.5T PO (07:47)
[2016-09-24 08:22] VITALS: BP 150/84; PULSE 85; RESP 20; TEMP 98.1
[2016-09-24] MEDS ORDERED: ALPRAZOLAM 0.25 MG TAB PO ONE (08:30)
== END 2016-09-24 08:41 | disposition home or self-care (01) ==
LOC: E/R 03:05
DX: L03.032 Cellulitis of left toe (principal); I10 Essential (primary) hypertension; Z79.82 Long term (current) use of aspirin
CPT/HCPCS: 73660; 82962; 93005; Z7502; Z7610